=== PATIENT | female | born 1990 | race Caucasian/White ===

== ENCOUNTER 2017-08-30 22:50 | Emergency (ER) | payer OTHER ==
[~2017-08-30] VITALS: Ht 172.7 cm; Wt 119.3 kg
[~2017-08-30 22:50] MED LIST: ACCUNEB 0.1.25 MG/3 INH; ALBUTEROL0.09 MG/A2; AMOXIL500 MG PO; FLAGYL500 MG PO; MACROBID100 M1 PO; MOTRIN800 MG PO; NKHM; OTIC SOLUTION 110 M1 OT; PNV-SELECT1 TAB PO; PRENATAL VITAMI1 TA9 PO; TOBRADEX 0.1%-0.5 ML OPH; TRAMADOL HCL50 MG PO; ZOFRAN4 MG PO; Zofran4 MG PO
[2017-08-30 23:29] LABS: BILIRUBIN NEGATIVE (NEGATIVE); BLOOD NEGATIVE (NEGATIVE); CLARITY SL CLOUDY (CLEAR); COLOR YELLOW (YELLOW); GLUCOSE NEGATIVE (NEGATIVE); KETONE TRACE (NEGATIVE); LEUKO ESTERASE NEGATIVE (NEGATIVE); NITRITE NEGATIVE (NEGATIVE); SPECIFIC GRAVITY 1.015 (1.005-1.030); UROBILINOGEN 0.2 E.U./dl (0.2-1.0)
[2017-08-30 23:37] LABS: EPITHELIAL CELLS 40-45; MUCOUS TRACE
[2017-08-30 23:38] LABS: WBC 0-2 wbc/hpf (0-5)
== END 2017-08-31 00:05 | disposition home or self-care (01) ==
LOC: ED 22:50
PROVIDERS: Emergency Medicine
DX: O23.593 Infection of other part of genital tract in pregnancy, third trimester (principal); N89.8 Other specified noninflammatory disorders of vagina; O99.333 Smoking (tobacco) complicating pregnancy, third trimester; F17.200 Nicotine dependence, unspecified, uncomplicated; Z3A.33 33 weeks gestation of pregnancy; Z91.030 Bee allergy status

== ENCOUNTER 2018-07-10 19:12 | Emergency (ER) | payer OTHER ==
[~2018-07-10] VITALS: Ht 175.2 cm; Wt 99.8 kg
[~2018-07-10 19:12] MED LIST changes: +CEPHALEXIN500 M1 PO; +Motrin,Rufen800 MG PO
[2018-07-10 19:34] LABS: BASO # 0.1 10*3/uL (0.0-0.1); BASO % 0.5 % (0.0-1.0); EOS # 0.7 10*3/uL (0.0-0.4); EOS % 6.5 % (1.0-4.0); HEMATOCRIT 40.2 % (37.0-47.0); HEMOGLOBIN 13.3 g/dl (12.0-16.0); LYMPH # 2.2 10*3/uL (1.3-4.4); LYMPH % 19.5 % (27.0-41.0); MEAN CELL VOLUME 81.9 fl (81.0-99.0); MEAN CORPUSCULAR HGB 27.1 pg (27.0-31.0); MEAN CORPUSCULAR HGB CONC 33.1 g/dl (33.0-37.0); MEAN PLATELET VOLUME 10.9 fl (9.6-12.3); MONO # 0.6 10*3/uL (0.1-1.0); MONO % 5.1 % (3.0-9.0); NEUT # 7.5 10*3/uL (2.3-7.9); NEUT % 68.1 % (47.0-73.0); PLATELET COUNT AUTOMATED 274 10*3/uL (130-400); RED BLOOD COUNT 4.91 10*6/uL (4.10-5.10); RED CELL DISTRI WIDTH 15.9 % (0-14.5); WHITE BLOOD COUNT 11.1 10*3/uL (4.8-10.8)
[2018-07-10 19:51] LABS: ALBUMIN 3.6 gm/dl (3.1-4.5); ALKALINE PHOSPHATASE 85 U/L (45-117); BUN 9 mg/dl (7-24); CHLORIDE 108 mmol/L (98-107); POTASSIUM 3.4 mmol/L (3.5-5.1); SGOT/AST 15 IU/L (3-35); SGPT/ALT 18 U/L (12-78); SODIUM 142 mmol/L (136-145); TOTAL PROTEIN 7.1 gm/dL (6.4-8.2)
[2018-07-10] MEDS ORDERED: PREDNISONE10 MG PO (22:23)
[2018-07-10] MEDS ORDERED: AUGMENTIN 875875 MG PO (22:23)
== END 2018-07-10 22:45 | disposition home or self-care (01) ==
LOC: ED 19:12
PROVIDERS: Physician Assistant
DX: L50.9 Urticaria, unspecified (principal); T40.4X5A Adverse effect of other synthetic narcotics, initial encounter; T36.95XA Adverse effect of unspecified systemic antibiotic, initial encounter; H10.9 Unspecified conjunctivitis; J32.9 Chronic sinusitis, unspecified; Z91.030 Bee allergy status; Z88.6 Allergy status to analgesic agent; Y92.89 Other specified places as the place of occurrence of the external cause

== ENCOUNTER 2018-07-19 13:13 | Emergency (ER) | payer OTHER ==
[~2018-07-19] VITALS: Ht 172.7 cm; Wt 90.7 kg
[~2018-07-19 13:13] MED LIST changes: +AUGMENTIN 875875 MG PO; +PREDNISONE10 MG PO
[2018-07-19 16:12] LABS: BASO # 0.1 10*3/uL (0.0-0.1); BASO % 0.3 % (0.0-1.0); EOS # 0.6 10*3/uL (0.0-0.4); EOS % 3.4 % (1.0-4.0); HEMATOCRIT 39.9 % (37.0-47.0); HEMOGLOBIN 12.4 g/dl (12.0-16.0); LYMPH # 2.1 10*3/uL (1.3-4.4); LYMPH % 12.1 % (27.0-41.0); MEAN CORPUSCULAR HGB 26.1 pg (27.0-31.0); MEAN CORPUSCULAR HGB CONC 31.1 g/dl (33.0-37.0); MEAN PLATELET VOLUME 10.5 fl (9.6-12.3); MONO # 1.2 10*3/uL (0.1-1.0); MONO % 6.8 % (3.0-9.0); NEUT # 13.4 10*3/uL (2.3-7.9); NEUT % 77.1 % (47.0-73.0); PLATELET COUNT AUTOMATED 293 10*3/uL (130-400); RED BLOOD COUNT 4.75 10*6/uL (4.10-5.10); RED CELL DISTRI WIDTH 15.9 % (0-14.5); WHITE BLOOD COUNT 17.4 10*3/uL (4.8-10.8)
[2018-07-19 16:27] LABS: ALBUMIN 2.7 gm/dl (3.1-4.5); ALKALINE PHOSPHATASE 112 U/L (45-117); BUN 5 mg/dl (7-24); CHLORIDE 104 mmol/L (98-107); CREATININE 0.55 mg/dL (0.55-1.02); POTASSIUM 3.1 mmol/L (3.5-5.1); SGOT/AST 16 IU/L (3-35); SGPT/ALT 26 U/L (12-78); SODIUM 139 mmol/L (136-145); TOTAL PROTEIN 7.2 gm/dL (6.4-8.2)
[2018-07-19 16:29] LABS: B-hCG (QUALITATIVE) NEGATIVE (NEGATIVE)
[2018-07-19] MEDS ORDERED: TYLENOL325 M1 PO (16:37)
[2018-07-19] MEDS ORDERED: NAPROSYN500 MG PO (16:37)
[2018-07-19] MEDS ORDERED: CLINDAMYCIN HC300 MG PO (16:37)
[2018-07-19] MEDS ORDERED: Bactroban Oint22 GM T (16:38)
== END 2018-07-19 16:55 | disposition home or self-care (01) ==
LOC: ED 13:13
PROVIDERS: Emergency Medicine
DX: L02.413 Cutaneous abscess of right upper limb (principal); L02.212 Cutaneous abscess of back [any part, except buttock and flank]; N61.1 Abscess of the breast and nipple; L53.8 Other specified erythematous conditions; R21 Rash and other nonspecific skin eruption; R11.2 Nausea with vomiting, unspecified; Z88.6 Allergy status to analgesic agent; Z91.030 Bee allergy status

== ENCOUNTER 2018-09-01 21:32 | Emergency (ER) | payer OTHER ==
[~2018-09-01] VITALS: Ht 172.7 cm; Wt 90.7 kg
[~2018-09-01 21:32] MED LIST changes: +Bactroban Oint22 GM T; +CLINDAMYCIN HC300 MG PO; +NAPROSYN500 MG PO; +TYLENOL325 M1 PO
== END 2018-09-01 22:53 | disposition home or self-care (01) ==
LOC: ED 21:32
DX: O46.91 Antepartum hemorrhage, unspecified, first trimester (principal); Z3A.01 Less than 8 weeks gestation of pregnancy; Z91.030 Bee allergy status; Z88.6 Allergy status to analgesic agent

== ENCOUNTER 2018-11-04 11:01 | Emergency (ER) | payer OTHER ==
[~2018-11-04] VITALS: Ht 175.2 cm; Wt 89.8 kg
[2018-11-04] MEDS ORDERED: CEPHALEXIN500 M1 PO (11:46)
[2018-11-04] MEDS ORDERED: SEPTDS PO (11:46)
[2018-11-04] MEDS ORDERED: IBU800 MG PO (11:46)
[2018-12-18] MEDS ORDERED: PROAIR HFA8.5 GM INH (14:03)
[2018-12-18] MEDS ORDERED: CEPHALEXIN500 M1 PO (18:26)
[2018-12-18] MEDS ORDERED: SEPTDS PO (18:26)
[2019-01-27] MEDS ORDERED: CLINDAMYCIN HC300 MG PO (17:21)
[2019-03-24] MEDS ORDERED: IBU800 M1 PO (20:16)
== END 2018-11-04 12:07 | disposition home or self-care (01) ==
LOC: ED 11:01
DX: L02.212 Cutaneous abscess of back [any part, except buttock and flank] (principal); L02.414 Cutaneous abscess of left upper limb; F17.200 Nicotine dependence, unspecified, uncomplicated; Z91.030 Bee allergy status; Z88.6 Allergy status to analgesic agent; Z86.14 Personal history of Methicillin resistant Staphylococcus aureus infection

== ENCOUNTER 2019-02-02 11:47 | Inpatient (IN) | payer OTHER ==
[~2019-02-02] VITALS: Ht 175.3 cm; Wt 79.6 kg
[2019-02-02] VITALS (20 sets, daily range): BP systolic 72–105; BP diastolic 34–74
--- NOTE | ~2019-02-02 | CON ---
[place], [place] REPORT OF CONSULTATION NAME: BRI MELARA UNIT #: [id number] ROOM: [facility] DOCTOR: THIEN SALAZAR MD,PAPO BIRTHDATE: [birth year] DOS: The patient asked for Pulmonary consultation, did not see the patient and the patient signed against medical advice. No assessment and management of the patient was completed as the patient was not assessed. PAPO NEUMANN MD CM:CONSTR:REPORT OF CONSULTATION [id number] 02/05/19 0339 interface
[~2019-02-02 11:47] MED LIST changes: +IBU800 MG PO; +PROAIR HFA8.5 GM INH; +SEPTDS PO
--- NOTE | 2019-02-02 11:54 | NUR ---
PATIENT WAS SEEN IN [facility] OFFICE AND AN ASSESSMENT WAS DONE. PATIENT MEETS [facility]. CINA=[id number]. PATIENT WANTS TO FOLLOW UP WITH RESIDENTIAL TREATMENT FOR HER AFTERCARE PLAN. [facility] STAFF WILL PROVIDE PATIENT WITH REFERRAL OPTIONS. NATO MANZANO B.A. INTAKE COOORDINATOR
[2019-02-02 12:36] LABS: HEMATOCRIT 32.2 % (37.0-47.0); HEMOGLOBIN 9.9 g/dl (12.0-16.0); MEAN CELL VOLUME 76.8 fl (81.0-99.0); MEAN CORPUSCULAR HGB 23.6 pg (27.0-31.0); MEAN CORPUSCULAR HGB CONC 30.7 g/dl (33.0-37.0); MEAN PLATELET VOLUME 10.3 fl (9.6-12.3); PLATELET COUNT AUTOMATED 214 10*3/uL (130-400); RED BLOOD COUNT 4.19 10*6/uL (4.10-5.10); RED CELL DISTRI WIDTH 16.9 % (0-14.5)
[2019-02-02 12:46] LABS: BILIRUBIN 2+ (NEGATIVE); BLOOD NEGATIVE (NEGATIVE); CLARITY SL CLOUDY (CLEAR); COLOR YELLOW (YELLOW); GLUCOSE NEGATIVE (NEGATIVE); KETONE TRACE (NEGATIVE); LEUKO ESTERASE NEGATIVE (NEGATIVE); NITRITE POSITIVE (NEGATIVE); PH 5.5 (5.0-9.0); SPECIFIC GRAVITY >= 1.030 (1.005-1.030)
[2019-02-02 12:50] LABS: ALKALINE PHOSPHATASE 162 U/L (45-117); BUN 19 mg/dl (7-24); CHLORIDE 104 mmol/L (98-107); CREATININE 1.19 mg/dL (0.55-1.02); LIPASE 36 U/L (73-393); POTASSIUM 3.3 mmol/L (3.5-5.1); SGOT/AST 444 IU/L (3-35); SGPT/ALT 189 U/L (12-78); SODIUM 136 mmol/L (136-145); TOTAL PROTEIN 6.9 gm/dL (6.4-8.2)
[2019-02-02 12:57] LABS: ACETAMINOPHEN (TYLENOL) < 5.0 ug/ml (10-30); ETHYL ALCOHOL < 3.0 mg/dl (<3)
[2019-02-02 12:59] LABS: BACTERIA 1+; MUCOUS 1+
[2019-02-02 13:00] LABS: WHITE BLOOD CELL CAST RARE
[2019-02-02 13:00] LABS: TOTAL CELLS COUNTED 100 #CELLS
[2019-02-02 13:01] LABS: PLATELET SUFFICIENCY NORMAL (NORMAL)
[2019-02-02 13:02] LABS: MICROCYTOSIS SLIGHT; POLYCHROMASIA SLIGHT
[2019-02-02 13:07] LABS: URINE AMPHETAMINES > 1000 (1000ng/ml); URINE BARBITURATES < 200 (200ng/ml); URINE BENZODIAZEPINES < 200 (200ng/ml); URINE CANNABINOIDS (THC) < 50 (50ng/ml); URINE COCAINE > 300 (300ng/ml); URINE METHADONE < 300 (300ng/ml); URINE OPIATES > 300 (300ng/ml); URINE PHENCYCLIDINE < 25 (25ng/ml)
--- NOTE | 2019-02-02 16:00 | NUR ---
A 28, admitted to [facility]U, under the services of GENNY Fsoter DO with a diagnosis of URI, TRANSAMINITIS, SUBSTANCE ABUSE, SEPSIS. Chief complaint is WITHDRAWAL SYMPTOMS. Patient arrived via ambulatory from ER. Monitor applied. Initial assessment completed. Vital signs taken and recorded. GENNY FOSTER DO notified of admission to the unit. Orders received. See assessment for past medical history, medications and allergies. Patient and/or family oriented to unit. [facility] visitation policy reviewed. Clothing/patient valuable form completed. SIMBA HILL
--- NOTE | 2019-02-02 16:30 | NUR ---
DR KILGORE IN TO DO MULTILUMEN CENTRAL LINE. PATIENT TOLERATED WELL. NO S/S OF DISTRESS. CALL LIGHT WITHIN REACH AFTER PROCEDURE.
--- NOTE | 2019-02-02 16:42 | NUR ---
STAT PROTABLE CXR ORDERED FOR CENTRAL LINE PLACEMENT VERIFICATION.
--- NOTE | 2019-02-02 17:12 | NUR ---
DR NEUMANN AWARE OF CONSULT. NO NEW ORDERS RECEIVED AT THIS TIME.
[2019-02-02] MEDS ORDERED: VENTOLIN 02.5 MG/3 M INH (17:20)
--- NOTE | 2019-02-02 17:22 | NUR ---
DR KILGORE NOTIFIED OF MED REC UP TO DATE.
--- NOTE | 2019-02-02 19:32 | NUR ---
24 HR chart check completed.
--- NOTE | 2019-02-02 19:40 | NUR ---
PATIENT REQUESTED TO SIGN OUT AMA, EXPLAINED TO THE PATIENT ABOUT THE MEDICATION SHE WAS ON TO GET HER BP UP. SHE DIDNT CARE, SHE JUST WANTED TO LEAVE. CONTACTED DR. RIDER, HE SENT DR. SAINZ, HE SPOKE WITH PATIENT, SHE STILL INSISTED ON LEAVING.
--- NOTE | 2019-02-02 20:05 | NUR ---
PATIENT LEFT FLOOR AMA, SIGNED PAPERS. IJ AND HEP LOCKS REMOVED.
--- NOTE | 2019-02-02 20:16 | NUR ---
V-INCIDENT COMPLETED. [id number].
[2019-03-24] MEDS ORDERED: IBU800 M1 PO (20:16)
== END 2019-02-02 20:07 | disposition left against medical advice (07) | DRG 871 ==
LOC: ED 11:47 → EDHOLD 15:36 → ICCU 16:13
PROVIDERS: Physician Assistant; ADMIT Internal Medicine
PROC: 02H633Z Insertion of Infusion Device into Right Atrium, Percutaneous Approach (ICD-10-PCS; principal; 2019-02-02)
PROC: B244ZZZ Ultrasonography of Right Heart (ICD-10-PCS; 2019-02-02)
DX: A41.9 Sepsis, unspecified organism (principal); J18.9 Pneumonia, unspecified organism; R65.21 Severe sepsis with septic shock; N17.0 Acute kidney failure with tubular necrosis; G93.41 Metabolic encephalopathy; E44.0 Moderate protein-calorie malnutrition; N30.01 Acute cystitis with hematuria; E86.1 Hypovolemia; D64.9 Anemia, unspecified; E87.6 Hypokalemia; R73.9 Hyperglycemia, unspecified; I95.89 Other hypotension; F17.200 Nicotine dependence, unspecified, uncomplicated; F15.10 Other stimulant abuse, uncomplicated; Z53.21 Procedure and treatment not carried out due to patient leaving prior to being seen by health care provider; F14.10 Cocaine abuse, uncomplicated; J45.20 Mild intermittent asthma, uncomplicated; R74.0 Nonspecific elevation of levels of transaminase and lactic acid dehydrogenase [LDH]; Z71.6 Tobacco abuse counseling; Z88.6 Allergy status to analgesic agent; Z91.030 Bee allergy status; Z83.3 Family history of diabetes mellitus; Z80.8 Family history of malignant neoplasm of other organs or systems; Z90.49 Acquired absence of other specified parts of digestive tract; Z98.891 History of uterine scar from previous surgery; Z68.25 Body mass index [BMI] 25.0-25.9, adult

== ENCOUNTER 2019-04-20 20:35 | Emergency (ER) | payer OTHER ==
[~2019-04-20 20:35] MED LIST changes: +IBU800 M1 PO; +VENTOLIN 02.5 MG/3 M INH
== END 2019-04-20 21:13 | disposition left against medical advice (07) ==
LOC: ED 20:35
DX: R06.02 Shortness of breath (principal); J45.909 Unspecified asthma, uncomplicated; Z53.21 Procedure and treatment not carried out due to patient leaving prior to being seen by health care provider

== ENCOUNTER 2021-01-12 22:54 | Emergency (ER) | payer OTHER ==
[~2021-01-12] VITALS: Ht 177.8 cm; Wt 89.8 kg
[2021-01-13 00:27] LABS: BASO % 0.1 % (0.0-1.0); EOS # 0.1 10*3/uL (0.0-0.4); EOS % 1.5 % (1.0-4.0); HEMATOCRIT 38.7 % (37.0-47.0); LYMPH % 13.5 % (27.0-41.0); MEAN CELL VOLUME 86.6 fl (81.0-99.0); MEAN CORPUSCULAR HGB 27.3 pg (27.0-31.0); MEAN CORPUSCULAR HGB CONC 31.5 g/dl (33.0-37.0); MEAN PLATELET VOLUME 11.2 fl (9.6-12.3); MONO # 0.6 10*3/uL (0.1-1.0); MONO % 7.9 % (3.0-9.0); NEUT # 5.5 10*3/uL (2.3-7.9); NEUT % 76.6 % (47.0-73.0); PLATELET COUNT AUTOMATED 149 10*3/uL (130-400); RED BLOOD COUNT 4.47 10*6/uL (4.10-5.10); RED CELL DISTRI WIDTH 13.3 % (0-14.5); WHITE BLOOD COUNT 7.2 10*3/uL (4.8-10.8)
[2021-01-13 00:52] LABS: ALKALINE PHOSPHATASE 94 U/L (45-117); BUN 7 mg/dl (7-24); CHLORIDE 104 mmol/L (98-107); CREATININE 0.61 mg/dL (0.55-1.02); LIPASE 50 U/L (73-393); POTASSIUM 3.1 mmol/L (3.5-5.1); SGOT/AST 45 IU/L (3-35); SGPT/ALT 54 U/L (12-78); SODIUM 141 mmol/L (136-145)
== END 2021-01-13 02:10 | disposition home or self-care (01) ==
LOC: ED 22:54
PROVIDERS: Internal Medicine
DX: E87.6 Hypokalemia (principal); R11.2 Nausea with vomiting, unspecified; L98.9 Disorder of the skin and subcutaneous tissue, unspecified; F17.200 Nicotine dependence, unspecified, uncomplicated; Z98.890 Other specified postprocedural states; Z90.49 Acquired absence of other specified parts of digestive tract; Z90.89 Acquired absence of other organs

== ENCOUNTER 2022-10-04 23:08 | Emergency (ER) | payer OTHER ==
[2022-10-04 23:28] LABS: BASO % 0.4 % (0.0-1.0); EOS # 0.1 10*3/uL (0.0-0.4); EOS % 2.2 % (1.0-4.0); HEMATOCRIT 35.3 % (37.0-47.0); LYMPH # 1.4 10*3/uL (1.3-4.4); LYMPH % 25.9 % (27.0-41.0); MEAN CELL VOLUME 79.3 fl (81.0-99.0); MEAN CORPUSCULAR HGB 25.6 pg (27.0-31.0); MEAN CORPUSCULAR HGB CONC 32.3 g/dl (33.0-37.0); MEAN PLATELET VOLUME 9.8 fl (9.6-12.3); MONO # 0.2 10*3/uL (0.1-1.0); NEUT # 3.7 10*3/uL (2.3-7.9); NEUT % 68.1 % (47.0-73.0); PLATELET COUNT AUTOMATED 222 10*3/uL (130-400); RED BLOOD COUNT 4.45 10*6/uL (4.10-5.10); RED CELL DISTRI WIDTH 15.6 % (0-14.5); WHITE BLOOD COUNT 5.4 10*3/uL (4.8-10.8)
[2022-10-04 23:43] LABS: ALKALINE PHOSPHATASE 82 U/L (46-116); BUN 12 mg/dl (9-23); CHLORIDE 106 mmol/L (98-107); POTASSIUM 3.1 mmol/L (3.4-5.1); SGPT/ALT 16 U/L (10-49); TOTAL PROTEIN 6.9 gm/dL (6.0-8.0)
[2022-10-05 01:12] LABS: BILIRUBIN Negative (Negative); BLOOD Negative (Negative); CLARITY Clear (Clear); COLOR Yellow (Yellow); GLUCOSE Negative (Negative); KETONE Trace (Negative); LEUKO ESTERASE Trace (Negative); NITRITE Negative (Negative); SPECIFIC GRAVITY >= 1.030 (1.001-1.030)
[2022-10-05 01:19] LABS: BACTERIA 1+; FINE GRANULAR CAST 0-2; MUCOUS 2+; URINE AMPHETAMINES Positive (1000ng/ml); URINE BARBITURATES Negative (200ng/ml); URINE BENZODIAZEPINES Negative (200ng/ml); URINE CANNABINOIDS (THC) Negative (50ng/ml); URINE COCAINE Negative (300ng/ml); URINE METHADONE Negative (300ng/ml); URINE OPIATES Positive (300ng/ml); URINE PHENCYCLIDINE Negative (25ng/ml)
== END 2022-10-05 08:32 | disposition home or self-care (01) ==
LOC: ED 23:08
PROVIDERS: Internal Medicine
DX: F19.10 Other psychoactive substance abuse, uncomplicated (principal); J45.909 Unspecified asthma, uncomplicated; F41.9 Anxiety disorder, unspecified; Z90.49 Acquired absence of other specified parts of digestive tract; Z90.89 Acquired absence of other organs; Z98.890 Other specified postprocedural states; F17.200 Nicotine dependence, unspecified, uncomplicated; F11.10 Opioid abuse, uncomplicated; Z79.899 Other long term (current) drug therapy

== ENCOUNTER 2022-10-05 09:13 | Emergency (ER) | payer OTHER ==
[~2022-10-05] VITALS: Wt 87.1 kg
== END 2022-10-05 10:00 ==
LOC: ED 09:13
DX: T40.1X4A Poisoning by heroin, undetermined, initial encounter (principal); Y92.149 Unspecified place in prison as the place of occurrence of the external cause; F41.9 Anxiety disorder, unspecified; J45.909 Unspecified asthma, uncomplicated; F17.200 Nicotine dependence, unspecified, uncomplicated; F14.90 Cocaine use, unspecified, uncomplicated; Z90.49 Acquired absence of other specified parts of digestive tract; Z90.89 Acquired absence of other organs; Z98.890 Other specified postprocedural states

== ENCOUNTER 2022-11-01 00:02 | Emergency (ER) | payer OTHER ==
[~2022-11-01] VITALS: Ht 167.6 cm; Wt 91.6 kg
[2022-11-01 01:10] LABS: BASO % 0.3 % (0.0-1.0); EOS % 0.6 % (1.0-4.0); HEMATOCRIT 36.6 % (37.0-47.0); LYMPH # 1.7 10*3/uL (1.3-4.4); LYMPH % 27.4 % (27.0-41.0); MEAN CELL VOLUME 79.9 fl (81.0-99.0); MEAN CORPUSCULAR HGB 26.2 pg (27.0-31.0); MEAN CORPUSCULAR HGB CONC 32.8 g/dl (33.0-37.0); MEAN PLATELET VOLUME 9.9 fl (9.6-12.3); MONO # 0.3 10*3/uL (0.1-1.0); MONO % 5.2 % (3.0-9.0); NEUT # 4.1 10*3/uL (2.3-7.9); NEUT % 66.3 % (47.0-73.0); PLATELET COUNT AUTOMATED 201 10*3/uL (130-400); RED BLOOD COUNT 4.58 10*6/uL (4.10-5.10); RED CELL DISTRI WIDTH 15.3 % (0-14.5); WHITE BLOOD COUNT 6.2 10*3/uL (4.8-10.8)
[2022-11-01 01:25] LABS: ALKALINE PHOSPHATASE 78 U/L (46-116); BUN 8 mg/dl (9-23); CHLORIDE 107 mmol/L (98-107); POTASSIUM 3.7 mmol/L (3.4-5.1); SGPT/ALT 33 U/L (10-49); TOTAL PROTEIN 6.8 gm/dL (6.0-8.0)
== END 2022-11-01 02:23 ==
LOC: ED 00:02
PROVIDERS: Emergency Medicine
DX: T50.901A Poisoning by unspecified drugs, medicaments and biological substances, accidental (unintentional), initial encounter (principal); F17.210 Nicotine dependence, cigarettes, uncomplicated; Z90.49 Acquired absence of other specified parts of digestive tract; Z90.89 Acquired absence of other organs; Z98.890 Other specified postprocedural states; Y92.89 Other specified places as the place of occurrence of the external cause